=== PATIENT | male | born 1960 | race Caucasian/White ===

== ENCOUNTER 2021-03-06 11:14 | Emergency (ER) | payer SELFPAY ==
[2021-03-06] MEDS ORDERED: CEPHALEXIN500 M1 PO (12:39)
[2021-03-06] MEDS ORDERED: BACTROBAN OINT22 GM EXT (12:39)
[2021-03-06] MEDS ORDERED: IBUPROFEN600 MG PO (12:39)
[2021-03-06] MEDS ORDERED: BACTRIM DS TAB1 EACH PO (12:39)
== END 2021-03-06 13:45 | disposition home or self-care (01) ==
LOC: ER1 11:14
DX: L02.416 Cutaneous abscess of left lower limb (principal); I10 Essential (primary) hypertension; I25.2 Old myocardial infarction; E11.9 Type 2 diabetes mellitus without complications
CPT/HCPCS: 87070; 87077; 87186; 87205; 99283